=== PATIENT | male | born 1975 | race Caucasian/White ===

== ENCOUNTER 2019-01-06 07:46 | Day surgery (SDC) | payer OTHER ==
[~2019-01-06] VITALS: Ht 170.2 cm; Wt 99.5 kg
[~2019-01-06 07:46] MED LIST: Ascorbic Acid500 MG PO; CLEM1.34 PO; FINA5 PO
--- NOTE | 2019-01-06 08:19 | NUR ---
PT ADMITTED TO [facility]. AGREE WITH PLANNED SURGERY. LUNG SOUNDS CLEAR.
--- NOTE | 2019-01-06 10:45 | NUR ---
Dressing to procedure site clean, dry, intact with no visible drainage, swelling, erythema or bruising noted. ABD BINDER IN PLACED. PT DRINKING WATER WITHOUT NAUSEA OR DIFFICULTY.
--- NOTE | 2019-01-06 11:27 | NUR ---
Patient States Post-Procedure ride home has been arranged. Discharge instructions reviewed with patient. Patient verbalizes understanding. Copy given to patient to take home. Discharged via wheelchair to private car for ride home.
== END 2019-01-06 11:27 | disposition home or self-care (01) ==
LOC: ORSCMMR 07:46 → ORD 09:00 → ORSCMMR 09:00
PROVIDERS: Surgery
PROC: 0WUF0JZ Supplement Abdominal Wall with Synthetic Substitute, Open Approach (ICD-10-PCS; principal; 2019-01-06 09:00)
DX: K43.6 Other and unspecified ventral hernia with obstruction, without gangrene (principal)
CPT/HCPCS: C1781; J0171; J0690; J1100; J1885; J2250; J2405; J2704; J2710; J3010; J7120

== ENCOUNTER 2021-05-30 09:22 | Emergency (ER) | payer OTHER ==
[~2021-05-30] VITALS: Ht 170.2 cm; Wt 113.4 kg
[2021-05-30 10:03] LABS: BASOPHILS ABSOLUTE AUTO 0.04 K/mm3 (0.00-0.23); BASOPHILS PERCENT AUTO 1 % (0-2); EOSINOPHILS PERCENT AUTO 1 % (0-6); Hematocrit 47.3 % (37.0-53.0); Hemoglobin 16.2 g/dL (13.5-17.5); IMMATURE GRAN ABSOLUTE AUTO 0.09 K/mm3 (0.00-0.10); IMMATURE GRAN PERCENT AUTO 1 % (0-1); LYMPHOCYTES ABSOLUTE AUTO 1.78 K/mm3 (0.84-5.20); LYMPHOCYTES PERCENT AUTO 23 % (21-46); MONOCYTES ABSOLUTE AUTO 0.69 K/mm3 (0.16-1.47); MONOCYTES PERCENT AUTO 9 % (4-13); Mean Corpuscular HGB 28.9 pg (26.0-34.0); Mean Corpuscular HGB Conc 34.2 g/dL (31.5-36.5); Mean Corpuscular Volume 84 fL (80-100); Mean Platelet Volume 11.3 fL (9.1-12.4); NEUTROPHILS PERCENT AUTO 65 % (41-73); Platelet Count 200 K/mm3 (150-400); RDW Coefficient Variation 12.4 % (11.7-14.2); RDW Standard Deviation 38.1 fL (35.1-46.3); Red Blood Cell Count 5.61 M/mm3 (4.30-5.90)
[2021-05-30] MEDS ORDERED: ESCI10 PO (10:04)
[2021-05-30] MEDS ORDERED: FLUTICASONE PRO16 GM (10:09)
[2021-05-30 10:25] LABS: Alanine Aminotransfer (ALT/SGP 50 U/L (12-78); Albumin, Blood 4.2 g/dL (3.4-5.0); Albumin/Globulin Ratio 1.1 (0.8-1.8); Alk Phos 60 U/L (50-136); Anion Gap 4 mmol/L (6-16); Aspartate Aminotrans (AST/SGOT 16 U/L (12-37); Blood Urea Nitrogen 17 mg/dL (8-24); Bun/Creatinine Ratio 19.7 (12.0-20.0); CO2, Blood 28 mmol/L (21-32); Chloride, Blood 105 mmol/L (98-108); Creatinine, Blood 0.86 mg/dL (0.60-1.20); Globulin, Blood 3.8 g/dL (2.2-4.0); Glomerular Filtration Rate >60 (60-); Glucose, Blood 111 mg/dL (70-99); Potassium, Blood 3.8 mmol/L (3.5-5.5); Sodium, Blood 137 mmol/L (136-145)
== END 2021-05-30 11:38 | disposition home or self-care (01) ==
LOC: ER 09:22
PROVIDERS: Physician Assistant
DX: G44.229 Chronic tension-type headache, not intractable (principal); Z65.8 Other specified problems related to psychosocial circumstances; Z88.0 Allergy status to penicillin
CPT/HCPCS: 36415; 70450; 80053; 85025; 93005; 93010; 96374; 96375; 99284-25; J1885; J2765; J7030

== ENCOUNTER → 2023-01-21 | Outpatient (CLI) | payer SELFPAY ==
[~2023-01-21] MED LIST changes: +ESCI10 PO; +FLUTICASONE PRO16 GM
[2023-01-21 18:52] LABS: BASOPHILS ABSOLUTE AUTO 0.02 K/mm3 (0.00-0.23); BASOPHILS PERCENT AUTO 1 % (0-2); EOSINOPHILS ABSOLUTE AUTO 0.08 K/mm3 (0.00-0.68); EOSINOPHILS PERCENT AUTO 2 % (0-6); Hematocrit 46.4 % (37.0-53.0); Hemoglobin 15.9 g/dL (13.5-17.5); IMMATURE GRAN ABSOLUTE AUTO 0.03 K/mm3 (0.00-0.10); IMMATURE GRAN PERCENT AUTO 1 % (0-1); LYMPHOCYTES ABSOLUTE AUTO 1.61 K/mm3 (0.84-5.20); LYMPHOCYTES PERCENT AUTO 42 % (21-46); MONOCYTES ABSOLUTE AUTO 0.63 K/mm3 (0.16-1.47); MONOCYTES PERCENT AUTO 16 % (4-13); Mean Corpuscular HGB 28.7 pg (26.0-34.0); Mean Corpuscular HGB Conc 34.3 g/dL (31.5-36.5); Mean Corpuscular Volume 84 fL (80-100); NEUTROPHILS ABSOLUTE AUTO 1.49 K/mm3 (1.96-9.15); NEUTROPHILS PERCENT AUTO 39 % (41-73); Platelet Count 204 K/mm3 (150-400); RDW Coefficient Variation 12.6 % (11.7-14.2); RDW Standard Deviation 38.7 fL (35.1-46.3); Red Blood Cell Count 5.54 M/mm3 (4.30-5.90); White Blood Cell Count 3.86 K/mm3 (4.00-11.30)
[2023-01-21 19:42] LABS: Bun/Creatinine Ratio 16.1 (12.0-20.0); Calcium, Blood 9.2 mg/dL (8.5-10.1); Creatinine, Blood 0.93 mg/dL (0.60-1.20); Thyroid Stimulating Hormone 2.12 uIU/mL (0.360-4.800)
== END | disposition home or self-care (01) ==
LOC: LAB SHORT 17:36 → LAB 17:36
PROVIDERS: Hospitalist
DX: K92.1 Melena (principal); I10 Essential (primary) hypertension
CPT/HCPCS: 80048; 84443; 85025

== ENCOUNTER 2023-02-01 14:42 | Emergency (ER) | payer OTHER ==
[~2023-02-01] VITALS: Ht 170.2 cm; Wt 97.5 kg
[2023-02-01] MEDS ORDERED: Diovan160 MG PO (15:26)
[2023-02-01 15:37] LABS: BASOPHILS ABSOLUTE AUTO 0.02 K/mm3 (0.00-0.23); BASOPHILS PERCENT AUTO 0 % (0-2); EOSINOPHILS PERCENT AUTO 3 % (0-6); Hematocrit 42.2 % (37.0-53.0); Hemoglobin 14.8 g/dL (13.5-17.5); IMMATURE GRAN ABSOLUTE AUTO 0.05 K/mm3 (0.00-0.10); IMMATURE GRAN PERCENT AUTO 1 % (0-1); LYMPHOCYTES ABSOLUTE AUTO 1.87 K/mm3 (0.84-5.20); LYMPHOCYTES PERCENT AUTO 28 % (21-46); MONOCYTES ABSOLUTE AUTO 0.97 K/mm3 (0.16-1.47); MONOCYTES PERCENT AUTO 15 % (4-13); Mean Corpuscular HGB 28.8 pg (26.0-34.0); Mean Corpuscular HGB Conc 35.1 g/dL (31.5-36.5); Mean Corpuscular Volume 82 fL (80-100); Mean Platelet Volume 11.9 fL (9.1-12.4); NEUTROPHILS ABSOLUTE AUTO 3.54 K/mm3 (1.96-9.15); NEUTROPHILS PERCENT AUTO 53 % (41-73); Platelet Count 228 K/mm3 (150-400); RDW Coefficient Variation 12.6 % (11.7-14.2); RDW Standard Deviation 37.7 fL (35.1-46.3); Red Blood Cell Count 5.14 M/mm3 (4.30-5.90); White Blood Cell Count 6.65 K/mm3 (4.00-11.30)
[2023-02-01 15:49] LABS: Albumin, Blood 3.7 g/dL (3.4-5.0); Albumin/Globulin Ratio 1.1 (0.8-1.8); Bilirubin, Total 0.7 mg/dL (0.1-1.0); Bun/Creatinine Ratio 18.7 (12.0-20.0); Calcium, Blood 8.7 mg/dL (8.5-10.1); Creatinine, Blood 1.07 mg/dL (0.60-1.20); Globulin, Blood 3.5 g/dL (2.2-4.0); Potassium, Blood 4.2 mmol/L (3.5-5.5); Total Protein, Blood 7.2 g/dL (6.4-8.2)
[2023-02-01 16:15] VITALS: BP 141/84
[2023-02-01] MEDS ORDERED: IMODIUM A-D2 M1 PO (16:26)
== END 2023-02-01 16:36 | disposition home or self-care (01) ==
LOC: ER 14:42
PROVIDERS: Emergency Medicine
DX: K62.5 Hemorrhage of anus and rectum (principal); R19.7 Diarrhea, unspecified; Z88.0 Allergy status to penicillin; Z79.899 Other long term (current) drug therapy
CPT/HCPCS: 80053; 85025; 99284

== ENCOUNTER 2023-02-03 16:34 | Observation (INO) | payer OTHER ==
[~2023-02-03] VITALS: Ht 170.2 cm; Wt 102.2 kg
[~2023-02-03 16:34] MED LIST changes: -BENZONATATE100 MG PO
[2023-02-03 16:50] VITALS: BP 140/98
--- NOTE | 2023-02-03 17:40 | NUR ---
ADMIT SUMMARY: PT ADMITTED TO ROOM 301. PT AMBULATED INDEPENDENTLY TO THE ROOM, IS A/O X 4, PLEASANT AND COOPERATIVE. PT DENIES PAIN, NAUSEA ON ADMIT, REPORTS HE HAS SOME RED BLOOD WITH STOOLS, SOMETIMES PURPLE, SMALL AMOUNT. PT MADE NPO AT THIS TIME UNTIL DR. MENDEZ REVIEWS. PT ORIENTED TO ROOM, CALL LIGHT. IV STARTED IN R AC. PT REPORTS HE USES A BIPAP AT HOME, HE DECLINED OFFER TO HAVE SET-UP FOR HIM TO USE. ADVISED PT HE CAN HAVE HIS BRING FROM HOME OR WE CAN SET ONE UP FOR HIM IF HE CHANGES HIS MIND. PT VU. NO OTHER CONCERNS AT THIS TIME FROM PT.
[2023-02-03 19:06] VITALS: BP 135/93
[2023-02-04 03:18] VITALS: BP 128/90
--- NOTE | 2023-02-04 06:14 | NUR ---
NOC SHIFT SUMMARY: C/O ALLERGIES THIS AM. CLARITIN ORDERED NEEDED DAILY. COLONOSCOPY THIS AM FOR CONTINUED RECTAL BLEEDING X 5 MONTHS. ALERT AND ORIENTED X4. INDEPENDENT IN THE ROOM. ROOM AIR. WATER AND ICE CHIPS AFTER 6 AM. START [employer] AT 0800. PATIENT AWARE. SALINE LOCKED. CALL LIGHT WITHIN REACH. BED IN LOW POSITION.
[2023-02-04 07:24] VITALS: BP 133/91
[2023-02-04] MEDS ORDERED: BENZONATATE100 MG PO (10:18)
--- NOTE | 2023-02-04 13:01 | NUR ---
ON CARE ROUNDING- NOTED THE PT STOOL IS CLEAR AND YELLOW WITH LITTLE TO NO SEDIMENT. CALLED [facility] AND SPOKE TO STAFF THERE, THEY ARE AWARE PREP IS COMPLETE AND THE PT HAS BEEN NPO SINCE 1000.
[2023-02-04 13:56] VITALS: BP 149/99
--- NOTE | 2023-02-04 14:03 | NUR ---
PT HAS 20G IN R AC THAT FLOWS WELL TO GRAVITY. SHOWS NO SIGNS OF INFILTRATION, NO SWELLING, COOLNESS, REDNESS, INFLAMMATION.
--- NOTE | 2023-02-04 14:49 | NUR ---
02/04/23 1449 [facility] History, Chart, Medications and Allergies reviewed before start of procedure.MONITOR INTACT WITH CONTINUOUS PULSE OXIMETRY, CONTINUOUS END TITAL CO2, AND INTERMITTENT BLOOD PRESSURE.3-LEAD EKG REVIEWED WITH PHYSICIAN PRIOR TO START OF PROCEDURE.DR.LIDDY MARCIAL MAC.
[2023-02-04 15:59] VITALS: BP 139/97
[2023-02-04 17:19] VITALS: BP 162/113
[2023-02-04 17:46] LABS: International Normalized Ratio 1.06; Prothrombin Time Results 11.1 Sec (9.7-11.5)
[2023-02-04 19:08] VITALS: BP 134/115
--- NOTE | 2023-02-04 22:06 | NUR ---
02/04/231999 PATIENT HAS HAD HIS CT SCAN. DR. DUENAS GAVE VERBAL ORDERS FOR PT TO BE DISCHARGED TONIGHT. PT TO FOLLOW UP WITH [facility] ON THURSDAY. PT RECEIVED DISCHARGE INSTRUCTIONS. IV WAS REMOVED. PT IS AMBULATORY AND LEFT WITH ALL BELONGINGS, ACCOMPANIED BY .
== END 2023-02-04 20:19 | disposition home or self-care (01) ==
LOC: MEDS 16:34
PROVIDERS: Internal Medicine Gastroenterology; ADMIT Hospitalist
PROC: 0DBN8ZZ Excision of Sigmoid Colon, Via Natural or Artificial Opening Endoscopic (ICD-10-PCS; principal; 2023-02-04 14:30)
PROC: 0DBM8ZZ Excision of Descending Colon, Via Natural or Artificial Opening Endoscopic (ICD-10-PCS; principal; 2023-02-04 14:30)
DX: C18.7 Malignant neoplasm of sigmoid colon (principal); D12.4 Benign neoplasm of descending colon; D12.8 Benign neoplasm of rectum; I10 Essential (primary) hypertension; G47.33 Obstructive sleep apnea (adult) (pediatric); Z72.0 Tobacco use; Z88.0 Allergy status to penicillin
CPT/HCPCS: 71260; 74177; 82378; 85610; A9270; G0378; G0379; J2704; J7120; Q9967

== ENCOUNTER → 2023-02-03 | Outpatient (CLI) | payer OTHER ==
[~2023-02-03] MED LIST changes: +BENZONATATE100 MG PO; +Diovan160 MG PO; +IMODIUM A-D2 M1 PO
[2023-02-03 19:40] LABS: Adenovirus F 40/41 Not Detected (NOT DETECT); Astrovirus Not Detected (NOT DETECT); Campylobacter Sp Not Detected (NOT DETECT); Cryptosporidium Not Detected (NOT DETECT); Cyclospora Cayetanensis Not Detected (NOT DETECT); E. Coli O157 Not Detected (NOT DETECT); Entamoeba Histolytica Not Detected (NOT DETECT); Enteroaggregative E. coli-EAEC Not Detected (NOT DETECT); Enteropathogenic E. coli-EPEC Not Detected (NOT DETECT); Enterotoxigenic E. coli-ETEC Not Detected (NOT DETECT); Giardia Lamblia Not Detected (NOT DETECT); Norovirus GI/GII Not Detected (NOT DETECT); Plesiomonas Shigelloides Not Detected (NOT DETECT); Rotavirus A Not Detected (NOT DETECT); Salmonella Sp Not Detected (NOT DETECT); Sapovirus Detected (NOT DETECT); Shiga Toxin-prod E. coli-STEC Not Detected (NOT DETECT); Shigella/Enteroin E. coli-EIEC Not Detected (NOT DETECT); Vibrio Cholerae Not Detected (NOT DETECT); Vibrio Sp Not Detected (NOT DETECT); Yersinia Enterocolitica Not Detected (NOT DETECT)
== END ==
LOC: LAB SHORT 06:00 → LAB 06:00 → LAB FUT 01-31 09:00
PROVIDERS: Hospitalist
DX: K92.1 Melena (principal); R19.7 Diarrhea, unspecified
CPT/HCPCS: 87507

== ENCOUNTER 2024-02-19 11:09 | Day surgery (SDC) | payer OTHER ==
[~2024-02-19] VITALS: Ht 170.2 cm; Wt 93.6 kg
[~2024-02-19 11:09] MED LIST changes: +BENZONATATE100 MG PO; +Lactated Ringer's 1,000 ML IV ONE
[2024-02-19] MEDS ORDERED: PROAIR RESPICL90 MCG (11:57)
[2024-02-19] MEDS ORDERED: Flonase 0.05% N16 GM (11:57)
[2024-02-19] MEDS ORDERED: ASCO500 (11:58)
[2024-02-19] MEDS ORDERED: propofoL 50 ML IV ONE (13:16)
[2024-02-19] MEDS ORDERED: Lactated Ringer's 1,000 ML IV ONE (13:42)
[2024-02-19 16:04] VITALS: BP 122/72
== END 2024-02-19 15:55 | disposition home or self-care (01) ==
LOC: ORSCSDS 11:09
PROVIDERS: Internal Medicine Gastroenterology
PROC: 0DBL8ZX Excision of Transverse Colon, Via Natural or Artificial Opening Endoscopic, Diagnostic (ICD-10-PCS; principal; 2024-02-19 13:15)
DX: Z85.038 Personal history of other malignant neoplasm of large intestine (principal); Z86.0100 Personal history of colon polyps, unspecified; K63.5 Polyp of colon; Z90.49 Acquired absence of other specified parts of digestive tract; I25.10 Atherosclerotic heart disease of native coronary artery without angina pectoris; G47.33 Obstructive sleep apnea (adult) (pediatric); J45.909 Unspecified asthma, uncomplicated; K21.9 Gastro-esophageal reflux disease without esophagitis; E66.9 Obesity, unspecified; I15.9 Secondary hypertension, unspecified; Z68.35 Body mass index [BMI] 35.0-35.9, adult; Z68.32 Body mass index [BMI] 32.0-32.9, adult; Z79.899 Other long term (current) drug therapy
CPT/HCPCS: 88305; J2704; J7120

== ENCOUNTER → 2024-03-29 | Outpatient (CLI) | payer OTHER ==
[~2024-03-29] MED LIST changes: +ASCO500; +Flonase 0.05% N16 GM; -Lactated Ringer's 1,000 ML IV ONE; +PROAIR RESPICL90 MCG
[2024-03-29 14:39] LABS: Alanine Aminotransfer (ALT/SGP 36 U/L (12-78); Albumin, Blood 4.1 g/dL (3.4-5.0); Albumin/Globulin Ratio 1.2 (0.8-1.8); Alk Phos 62 U/L (50-136); Anion Gap 10 mmol/L (3-11); Aspartate Aminotrans (AST/SGOT 15 U/L (12-37); Bilirubin, Total 0.7 mg/dL (0.1-1.0); Blood Urea Nitrogen 19 mg/dL (8-24); Bun/Creatinine Ratio 18.6 (12.0-20.0); CHOL/HDL RATIO 6.9; CO2, Blood 29 mmol/L (21-32); Calcium, Blood 9.5 mg/dL (8.5-10.1); Chloride, Blood 103 mmol/L (98-108); Cholesterol 200 mg/dL (50-200); Creatinine, Blood 1.02 mg/dL (0.60-1.20); Globulin, Blood 3.3 g/dL (2.2-4.0); Glomerular Filtration Rate 91 (60-); Glucose, Blood 128 mg/dL (70-99); HDL Cholesterol 29 mg/dL (>39); LDL/HDL RATIO 4.5; Low Density Lipoprotein Chol 132 mg/dL (0-110); Potassium, Blood 4.2 mmol/L (3.5-5.5); Sodium, Blood 138 mmol/L (136-145); Total Protein, Blood 7.4 g/dL (6.4-8.2); Triglycerides 197 mg/dL (30-160); Very Low Density Lipoprot Chol 39 mg/dL (6-32)
== END | disposition home or self-care (01) ==
LOC: LAB SHORT 13:17 → LAB 13:17
PROVIDERS: Hospitalist
DX: I10 Essential (primary) hypertension (principal)
CPT/HCPCS: 80053; 80061

== ENCOUNTER → 2024-06-22 | Outpatient (CLI) | payer OTHER ==
[2024-06-22 19:33] LABS: BASOPHILS ABSOLUTE AUTO 0.03 K/mm3 (0.00-0.23); BASOPHILS PERCENT AUTO 0 % (0-2); EOSINOPHILS ABSOLUTE AUTO 0.24 K/mm3 (0.00-0.68); EOSINOPHILS PERCENT AUTO 3 % (0-6); Hemoglobin 14.6 g/dL (13.5-17.5); IMMATURE GRAN ABSOLUTE AUTO 0.08 K/mm3 (0.00-0.10); IMMATURE GRAN PERCENT AUTO 1 % (0-1); LYMPHOCYTES ABSOLUTE AUTO 1.48 K/mm3 (0.84-5.20); LYMPHOCYTES PERCENT AUTO 18 % (21-46); MONOCYTES ABSOLUTE AUTO 0.66 K/mm3 (0.16-1.47); MONOCYTES PERCENT AUTO 8 % (4-13); Mean Corpuscular HGB 28.7 pg (26.0-34.0); Mean Corpuscular Volume 85 fL (80-100); Mean Platelet Volume 12.3 fL (9.1-12.4); NEUTROPHILS ABSOLUTE AUTO 5.86 K/mm3 (1.96-9.15); NEUTROPHILS PERCENT AUTO 70 % (41-73); Platelet Count 215 K/mm3 (150-400); RDW Standard Deviation 40.4 fL (35.1-46.3); Red Blood Cell Count 5.09 M/mm3 (4.30-5.90); White Blood Cell Count 8.35 K/mm3 (4.00-11.30)
== END ==
LOC: LAB SHORT 17:59 → LAB 17:59
PROVIDERS: Hospitalist
DX: R59.0 Localized enlarged lymph nodes (principal)
CPT/HCPCS: 85025; 85651